=== PATIENT | male | born 1995 | race Caucasian/White ===

== ENCOUNTER 2018-08-14 14:54 | Emergency (ER) | payer OTHER ==
[~2018-08-14] VITALS: Ht 188 cm; Wt 63.6 kg
[2018-08-14 14:58] VITALS: Ht 188 cm; Wt 63.6 kg
[2018-08-14] MEDS ORDERED: VIVANCE (15:00)
[2018-08-14 17:00] VITALS: BP 138/78
== END 2018-08-14 16:36 | disposition home or self-care (01) ==
LOC: D.ER 14:54
DX: S06.0X9A Concussion with loss of consciousness of unspecified duration, initial encounter (principal); Y93.17 Activity, water skiing and wake boarding; Y92.828 Other wilderness area as the place of occurrence of the external cause